=== PATIENT | male | born 1955 | race Caucasian/White ===

== ENCOUNTER 2023-10-26 06:14 | Day surgery (SDC) | payer MEDICARE, OTHER, SELFPAY ==
[2023-10-26] VITALS (8 sets, daily range): BP systolic 127–160; BP diastolic 66–91; BMI 29.0
[2023-10-26 12:07] LABS: Glucose - Point of Care 177 mg/dl (70-99)
[2023-10-26] MEDS: NORMOSOL-R/PLASMALYTE-A 1000 IV (12:08)
[2023-10-26] MEDS: TYLENOL 1000 MG PO (12:08)
[2023-10-26] MEDS: CELEBREX 200 MG PO (12:08)
[2023-10-26 17:45] LABS: Glucose - Point of Care 209 mg/dl (70-99)
[2023-10-26] MEDS: NOVOLOG vial 2 UNITS SC (17:57)
[2023-10-26] MEDS: SUBLIMAZE 50 MCG IV ×2 (18:04→18:20)
[2023-10-26] MEDS: TYLENOL 650 MG PO (18:57)
[2023-10-26] MEDS: ROXICODONE 5 MG PO (18:58)
== END 2023-10-26 19:35 | disposition home or self-care (01) ==
LOC: SDS 06:14
PROVIDERS: ATTENDING PHYSICIAN Student in an Organized Health Care Education/Training Program; FAMILY PHYSICIAN Internal Medicine Critical Care Medicine
PROC: 0SGL04Z Fusion of Left Tarsometatarsal Joint with Internal Fixation Device, Open Approach (ICD-10-PCS; 2023-10-26)
DX: S92.312A Displaced fracture of first metatarsal bone, left foot, initial encounter for closed fracture (principal); S92.322A Displaced fracture of second metatarsal bone, left foot, initial encounter for closed fracture; S92.332A Displaced fracture of third metatarsal bone, left foot, initial encounter for closed fracture; X58.XXXA Exposure to other specified factors, initial encounter; M21.42 Flat foot [pes planus] (acquired), left foot; W10.9XXA Fall (on) (from) unspecified stairs and steps, initial encounter
CPT/HCPCS: 28730; 73630; 76000; 82962; 93005